=== PATIENT | male | born 1940 | race Caucasian/White ===

== ENCOUNTER 2016-12-05 07:35 | Day surgery (SDC) | payer MEDICARE, BC ==
[2016-12-05] MEDS ORDERED: Propofol 200 MG/20 ML SDV ONE ×2 (07:37→07:38)
[2016-12-05] MEDS ORDERED: fentaNYL 100 MCG/2 ML SDV ONE (07:37)
[2016-12-05] MEDS ORDERED: Dextrose 5%-Lactated Ringers 1,000 ML IV SCH (08:30)
[2016-12-05 11:08] VITALS: BP 136/84
--- NOTE | 2016-12-11 12:48 | OR ---
DATE OF PROCEDURE: 12/05/2016 PREOPERATIVE DIAGNOSIS: Indications for colon screening. POSTOPERATIVE DIAGNOSIS: Uncomplicated left colonic diverticulosis. OPERATIVE PROCEDURE: Flexible colonoscopy. ANESTHESIA: IV sedation. INDICATION FOR PROCEDURE: A 76-year-old male presenting for a screening colonoscopy. He has no personal or family history of colonic neoplasia. Plan is to proceed with colonoscopy with biopsies and/or polypectomy. Potential risks including bleeding and perforation were discussed, and the patient wishes to proceed. DETAILS OF PROCEDURE: The patient was taken to the operating room and placed in a left lateral decubitus position. IV sedation was administered, after which the initial digital rectal exam was performed and was unremarkable. Colonoscope was then passed to the level of the cecum. The prep was fairly good with there only being a small amount of liquid stool. However, the patient was noted to have some uncomplicated diverticulosis in the left colon. Apart from that, there were no abnormalities. There were no areas of colitis. No polyps or other signs of neoplasia. The scope was then withdrawn and the above findings reconfirmed, and then the procedure concluded. The patient was taken to the recovery room in a satisfactory condition. Recommendation would be to repeat the colonoscopy in 10 years based on clinical judgment. If the patient is in especially good health at that time, it would be reasonable to repeat it at that time. Otherwise, this would involve clinical judgement at that point. Jc Amin MD /[id number]
== END 2016-12-05 11:30 | disposition home or self-care (01) ==
LOC: JP.SDS 07:35
PROVIDERS: ATTEND Surgery
DX: Z12.11 Encounter for screening for malignant neoplasm of colon (principal); K57.30 Diverticulosis of large intestine without perforation or abscess without bleeding
CPT/HCPCS: G0121; J2704; J3010; J7042

== ENCOUNTER 2019-04-15 09:55 | Emergency (ER) | payer MEDICARE ==
[2019-04-15] MEDS ORDERED: Sodium Chloride 0.9% 10 ML Syringe FLUSH PRN (10:16)
--- NOTE | 2019-04-15 10:21 | EDM.PDOC ---
ED HPI GENERAL MEDICAL PROBLEM - General Chief Complaint: Neuro Symptoms/Deficits Stated Complaint: POSSIBLE STROKE? / SPEECH IMPAIRMENT Time Seen by Provider: 04/15/19 10:17 Source of Information: Reports: Patient History Limitations: Reports: No Limitations - History of Present Illness INITIAL COMMENTS - FREE TEXT/NARRATIVE: pt arrived with a history of increased didfficulty finding his words an getting them out. His states thar since last summer in the evening when he is tired he has problems getting his words out. He has a history of atrial fib and she thinks he is on xarelto. Onset: Other ( the symptoms are different in that he got up like this and it remains the same. ) Duration: Hour(s): Location: Reports: Head, Other ( difficulty getting his words out. ) Associated Symptoms: Reports: No Other Symptoms - Related Data Allergies Allergy/AdvReac Type Severity Reaction Status Date / Time No Known Allergies Allergy Verified 04/15/19 10:04 Home Meds: Home Meds Calcium Carbonate [Calcium] 500 mg PO DAILY 11/30/16 [History] Cholecalciferol (Vitamin D3) [Vitamin D] 5,000 unit PO DAILY 11/30/16 [History] Multivitamin with Minerals [One Daily Plus Minerals] 1 tab PO DAILY 11/30/16 [ History] Valsartan [Diovan] 40 mg PO DAILY 11/30/16 [History] guaiFENesin/Codeine Phosphate [Guaiatussin AC Liquid] 10 ml PO Q4H PRN 11/30/16 [History] Rivaroxaban [Xarelto] 20 mg PO DAILY 04/15/19 [History] Past Medical History HEENT History: Reports: Other (See Below) Other HEENT History: 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 Cardiovascular History: Reports: Hypertension Respiratory History: Reports: Pneumonia, Recurrent Gastrointestinal History: Reports: Colon Polyp, Hemorrhoids Musculoskeletal History: Reports: Other (See Below) Other Musculoskeletal History: right knee edema from pseudogout - Past Surgical History HEENT Surgical History: Reports: Adenoidectomy GI Surgical History: Reports: Colonoscopy Social & Family History - Caffeine Use Caffeine Use: Reports: Coffee ED ROS GENERAL - Review of Systems Review Of Systems: See Below Constitutional: Reports: No Symptoms HEENT: Reports: No Symptoms Respiratory: Reports: No Symptoms Cardiovascular: Reports: Palpitations, Other (pt has a history of atrial fib on xarelto.) GI/Abdominal: Reports: No Symptoms : Reports: No Symptoms Musculoskeletal: Reports: No Symptoms Neurological: Reports: Trouble Speaking Psychiatric: Reports: No Symptoms ED EXAM, NEURO - Physical Exam Exam: See Below Text/Narrative:: pt arrived this am because he was not able to express himself. He has had a history of some problems in that if he got tired he would have trouble finding the words he needed to find. He has not had a headache and he was not having trouble with his motor funtions. Exam Limited By: Other (pt was having trouble finding the right word to express himself.) General Appearance: Alert, No Apparent Distress, Other (pupils are equal and reactive. ) Ears: Normal TMs Nose: Normal Inspection Throat/Mouth: Normal Inspection Head Exam: Atraumatic Neck: Other (no notable bruits found) Respiratory/Chest: No Respiratory Distress Cardiovascular: Irregularly Irregular, Other (pt has a history of atrial fib. ) GI/Abdominal: Soft, Non-Tender (Male) Exam: Deferred Rectal (Males) Exam: Deferred Neurological: Alert, Oriented x 3, Other ( difficult time expressing himself. ) Back Exam: Normal Inspection Extremities: Normal Inspection Psychiatric: Normal Affect Course - Vital Signs Last Recorded V/S: Last Vital Signs Temp 36.3 C 04/15/19 10:32 Pulse 82 04/15/19 13:44 Resp 14 04/15/19 12:27 BP 150/104 H 04/15/19 13:44 Pulse Ox 99 04/15/19 13:44 - Orders/Labs/Meds Labs: Laboratory Tests 04/15/19 04/15/19 04/15/19 Range/Units 10:22 10:22 10:22 WBC 9.3 (4.5-11.0) K/uL RBC 4.43 (4.30-5.90) M/uL Hgb 14.4 (12.0-15.0) g/dL Hct 44.1 (40.0-54.0) % MCV 100 H (80-98) fL MCH 33 H (27-31) pg MCHC 33 (32-36) % Plt Count 230 (150-400) K/uL Neut % (Auto) 41 (36-66) % Lymph % (Auto) 44 (24-44) % Craven % (Auto) 10 H (2-6) % Eos % (Auto) 5 H (2-4) % Baso % (Auto) 0 (0-1) % Sodium 139 L (140-148) mmol/L Potassium 4.3 (3.6-5.2) mmol/L Chloride 103 (100-108) mmol/L Carbon Dioxide 28 (21-32) mmol/L Anion Gap 12.3 (5.0-14.0) mmol/L BUN 26 H (7-18) mg/dL Creatinine 1.1 (0.8-1.3) mg/dL Est Cr Clr Drug Dosing 53.55 mL/min Estimated GFR (MDRD) > 60 (>60) Glucose 73 L (74-106) mg/dL Calcium 9.4 (8.5-10.1) mg/dL Total Bilirubin 0.9 (0.2-1.0) mg/dL AST 24 (15-37) U/L ALT 35 (12-78) U/L Alkaline Phosphatase 131 H (46-116) U/L Troponin I < 0.017 (0.000-0.056) ng/mL Total Protein 8.5 H (6.4-8.2) g/dL Albumin 3.9 (3.4-5.0) g/dL Globulin 4.6 H (2.3-3.5) g/dL Albumin/Globulin Ratio 0.9 L (1.2-2.2) Urine Color (YELLOW) Urine Appearance (CLEAR) Urine pH (5.0-8.0) Ur Specific [place] (1.008-1.030) Urine Protein (NEGATIVE) mg/dL Urine Glucose (UA) (NEGATIVE) mg/dL Urine Ketones (NEGATIVE) mg/dL Urine Occult Blood (NEGATIVE) Urine Nitrite (NEGATIVE) Urine Bilirubin (NEGATIVE) Urine Urobilinogen (0.2-1.0) EU/dL Ur Leukocyte Esterase (NEGATIVE) Urine RBC (0-5) Urine WBC (0-5) Ur Epithelial Cells Amorphous Sediment Urine Bacteria Urine Mucus 04/15/19 Range/Units 10:48 WBC (4.5-11.0) K/uL RBC (4.30-5.90) M/uL Hgb (12.0-15.0) g/dL Hct (40.0-54.0) % MCV (80-98) fL MCH (27-31) pg MCHC (32-36) % Plt Count (150-400) K/uL Neut % (Auto) (36-66) % Lymph % (Auto) (24-44) % Craven % (Auto) (2-6) % Eos % (Auto) (2-4) % Baso % (Auto) (0-1) % Sodium (140-148) mmol/L Potassium (3.6-5.2) mmol/L Chloride (100-108) mmol/L Carbon Dioxide (21-32) mmol/L Anion Gap (5.0-14.0) mmol/L BUN (7-18) mg/dL Creatinine (0.8-1.3) mg/dL Est Cr Clr Drug Dosing mL/min Estimated GFR (MDRD) (>60) Glucose (74-106) mg/dL Calcium (8.5-10.1) mg/dL Total Bilirubin (0.2-1.0) mg/dL AST (15-37) U/L ALT (12-78) U/L Alkaline Phosphatase (46-116) U/L Troponin I (0.000-0.056) ng/mL Total Protein (6.4-8.2) g/dL Albumin (3.4-5.0) g/dL Globulin (2.3-3.5) g/dL Albumin/Globulin Ratio (1.2-2.2) Urine Color Yellow (YELLOW) Urine Appearance Slightly cloudy A (CLEAR) Urine pH 5.0 (5.0-8.0) Ur Specific [place] 1.020 (1.008-1.030) Urine Protein 30 H (NEGATIVE) mg/dL Urine Glucose (UA) Negative (NEGATIVE) mg/dL Urine Ketones Negative (NEGATIVE) mg/dL Urine Occult Blood Trace-intact H (NEGATIVE) Urine Nitrite Negative (NEGATIVE) Urine Bilirubin Negative (NEGATIVE) Urine Urobilinogen 0.2 (0.2-1.0) EU/dL Ur Leukocyte Esterase Negative (NEGATIVE) Urine RBC 5-10 H (0-5) Urine WBC 0-5 (0-5) Ur Epithelial Cells Moderate Amorphous Sediment Not seen Urine Bacteria Few Urine Mucus Few Meds: Medications Discontinued Medications Generic Name Dose Route Start Last Admin Trade Name Freq PRN Reason Stop Dose Admin Sodium Chloride 1,000 mls @ 150 mls/hr 04/15/19 11:00 04/15/19 10:56 Normal Saline IV 150 mls/hr ASDIRECTED CALLUM Administration Sodium Chloride 10 ml 04/15/19 10:16 04/15/19 10:44 Saline Flush FLUSH 10 ml ASDIRECTED PRN Administration Keep Vein Open - Re-Assessments/Exams Free Text/Narrative Re-Assessment/Exam: 04/15/19 14:32 pt had a cat scan of the head which was neg. He had a mri of the brain and a mra. These all looked good. His lab work was normal. He will be followed at the clinic. If he continues to have problems he may need to see neurology. Departure - Departure Time of Disposition: 14:25 Disposition: Home, Self-Care 01 Condition: Fair Clinical Impression: Problems with communication (including speech), Atrial fibrillation with controlled ventricular rate - Discharge Information Instructions: Aphasia, Atrial Fibrillation, [id number] Referrals: PCP,None [Primary Care Provider] - Forms: ED Department Discharge Care Plan Goals: continue same meds, push fluids, appt with John Littlejohn in 1 week in follow up, rtc if symptoms should get worse. Sepsis Event Note - Focused Exam Date Exam was Performed: 04/20/19 Time Exam was Performed: 00:33
--- NOTE | 2019-04-15 10:48 | CRLCT ---
indication: Problem with speech; rule out stroke. COMPARISON: None. TECHNIQUE: CT head without intravenous contrast; coronal reformats. FINDINGS: No evidence of intracranial hemorrhage. Evidence of small vessel disease with periventricular low densities. No evidence of shift of the midline structures. The calvarium is unremarkable. IMPRESSION: 1. Evidence of small vessel disease. 2. No intracranial hemorrhage. 3. No mass lesions or shift of the midline structures. Please note that all CT scans at this facility use dose modulation, iterative reconstruction, and/or weight-based dosing when appropriate to reduce radiation dose to as low as reasonably achievable. Dictated by Ellen Urbina MD @ Apr 15 2019 10:43AM Signed by Dr. Ellen Urbina @ Apr 15 2019 10:46AM
[2019-04-15] MEDS ORDERED: Sodium Chloride 0.9% 1,000 ML IV SCH (11:00)
[2019-04-15 13:51] VITALS: BP 150/104; PULSE 82
--- NOTE | 2019-04-15 13:54 | CRLMR ---
INDICATION: Aphasia. TECHNIQUE: MRI brain: Multiplanar multisequence noncontrast MR images were obtained through the brain. MRA head: 3D lped-nt-tmebax images were obtained through the head. COMPARISON: CT brain 04/15/2019. FINDINGS: MRI brain: Prominence of the ventricles and sulci compatible with mild diffuse cerebral volume loss. No mass effect or midline shift. Patchy and scattered T2 FLAIR hyperintensities in the supratentorial white matter, typical for sequelae of [id number] chronic microvascular ischemic changes. No intracranial hemorrhage. No diffusion restriction to suggest acute infarction. The major arterial flow voids of the skullbase are preserved. Right phthisis bulbi. Mild paranasal sinus mucosal thickening. Trace mastoid fluid. MRA head: The visualized internal carotid, middle cerebral, and anterior cerebral arteries are patent without significant narrowing. The vertebral, basilar, and posterior cerebral arteries are patent without significant narrowing. No intracranial aneurysm. IMPRESSION: 1. No acute infarction, mass effect, or intracranial hemorrhage. 2. No significant narrowing of the visualized intracranial arteries. 3. Gnvw-in-klagycqt chronic microvascular ischemic changes. 4. Mild diffuse cerebral volume loss. Dictated by Tony Guerra MD @ Apr 15 2019 1:47PM Signed by Dr. Tony Guerra @ Apr 15 2019 1:53PM
--- NOTE | 2019-04-15 13:54 | CRLMR ---
INDICATION: Aphasia. TECHNIQUE: MRI brain: Multiplanar multisequence noncontrast MR images were obtained through the brain. MRA head: 3D dtcf-[id number]-ctkaqh images were obtained through the head. COMPARISON: CT brain 04/15/2019. FINDINGS: MRI brain: Prominence of the ventricles and sulci compatible with mild diffuse cerebral volume loss. No mass effect or midline shift. Patchy and scattered T2 FLAIR hyperintensities in the supratentorial white matter, typical for sequelae of [id number] chronic microvascular ischemic changes. No intracranial hemorrhage. No diffusion restriction to suggest acute infarction. The major arterial flow voids of the skullbase are preserved. Right phthisis bulbi. Mild paranasal sinus mucosal thickening. Trace mastoid fluid. MRA head: The visualized internal carotid, middle cerebral, and anterior cerebral arteries are patent without significant narrowing. The vertebral, basilar, and posterior cerebral arteries are patent without significant narrowing. No intracranial aneurysm. IMPRESSION: 1. No acute infarction, mass effect, or intracranial hemorrhage. 2. No significant narrowing of the visualized intracranial arteries. 3. Ovjj-or-hhdmjhhl chronic microvascular ischemic changes. 4. Mild diffuse cerebral volume loss. Dictated by Tony Guerra MD @ Apr 15 2019 1:47PM Signed by Dr. Tony Guerra @ Apr 15 2019 1:53PM
== END 2019-04-15 14:39 | disposition home or self-care (01) ==
LOC: JP.ED 09:55
DX: I48.91 Unspecified atrial fibrillation (principal); I10 Essential (primary) hypertension; Z79.899 Other long term (current) drug therapy
CPT/HCPCS: 36415; 70450; 70544; 70551; 80053; 81001; 84484; 85025; 93005; 93010; 96360; 96361; 99285; J7030

== ENCOUNTER 2021-11-20 03:46 | Emergency (ER) | payer MEDICARE ==
[2021-11-20] MEDS ORDERED: REMDESIVIR 200 MG in Sodium Chloride 0.9% 250 ML IV ONE (04:25)
[2021-11-20] MEDS ORDERED: Acetaminophen 325 MG Tab PO PRN (04:28)
[2021-11-20] MEDS ORDERED: Lactated Ringers 1,000 ML IV SCH (04:30)
[2021-11-20 04:51] LABS: ESTIMATED GFR 50 mL/min (>60)
[2021-11-20 07:18] VITALS: BP 126/76; PULSE 71
== END 2021-11-20 07:10 | disposition home or self-care (01) ==
LOC: JP.ED 03:46
DX: U07.1 COVID-19 (principal); I10 Essential (primary) hypertension; Z79.899 Other long term (current) drug therapy; Z86.16 Personal history of COVID-19
CPT/HCPCS: 36415; 71045; 80053; 83605; 84145; 85025; 86140; 96365; 99285; J0248; J7050; J7120

== ENCOUNTER 2021-11-20 21:22 | Inpatient (IN) | payer MEDICARE ==
[2021-11-20] MEDS ORDERED: Acetaminophen 325 MG Tab PO PRN (21:32)
[2021-11-20] MEDS ORDERED: Ketorolac 30 MG/ML SDV IVPUSH ONE (21:41)
[2021-11-20] MEDS ORDERED: Dexamethasone 4 MG/ML SDV IVPUSH SCH (21:45)
[2021-11-20 22:27] LABS: TROPONIN I HIGH SENSITIVITY 49.9 pg/mL (<=60.3)
[2021-11-20] MEDS ORDERED: Furosemide 40 MG/4 ML VIAL IVPUSH ONE (22:37)
[2021-11-21] MEDS ORDERED: Furosemide 40 MG/4 ML VIAL IVPUSH ONE (04:49)
[2021-11-21] MEDS ORDERED: Cholecalciferol (Vitamin D3) 25 MCG Tab PO SCH (09:00)
[2021-11-21] MEDS ORDERED: Calcium Carbonate 500 MG Tab.Chew PO SCH (09:00)
[2021-11-21] MEDS ORDERED: REMDESIVIR 100 MG in Sodium Chloride 0.9% 100 ML IV SCH ×4 (09:00)
[2021-11-21] MEDS ORDERED: Metoprolol Succinate 25 MG Tab.ER PO SCH (09:00)
[2021-11-21] MEDS ORDERED: Losartan 25 MG Tab PO SCH (09:00)
[2021-11-21] MEDS ORDERED: Rivaroxaban 10 MG Tab PO SCH (09:00)
[2021-11-21] MEDS ORDERED: Multivitamins with Iron/Calcium/Folic Acid/Minerals Tab PO SCH (09:00)
[2021-11-21] MEDS ORDERED: guaiFENesin/Dextromethorphan 100-10 MG/5 ML Soln 10 ML Cup PO PRN (11:38)
[2021-11-21] MEDS ORDERED: Benzonatate 100 MG Cap PO PRN (11:38)
[2021-11-21] MEDS ORDERED: Dexamethasone 4 MG/ML SDV IVPUSH SCH (14:00)
[2021-11-22 05:36] LABS: ESTIMATED GFR 43 mL/min (>60)
[2021-11-22 07:29] VITALS: BP 109/75; PULSE 108
== END 2021-11-22 17:05 | disposition expired | DRG 177 ==
LOC: JP.ED 21:22 → JP.MS 23:21
PROVIDERS: ADMIT Family Medicine; ATTEND Internal Medicine
PROC: 8E0ZXY6 Isolation (ICD-10-PCS; principal; 2021-11-20)
PROC: 3E0333Z Introduction of Anti-inflammatory into Peripheral Vein, Percutaneous Approach (ICD-10-PCS; 2021-11-20)
PROC: 5A0945A Assistance with Respiratory Ventilation, 24-96 Consecutive Hours, High Flow/Velocity Cannula (ICD-10-PCS; 2021-11-20)
PROC: XW033E5 Introduction of Remdesivir Anti-infective into Peripheral Vein, Percutaneous Approach, New Technology Group 5 (ICD-10-PCS; 2021-11-21)
DX: U07.1 COVID-19 (principal); I48.91 Unspecified atrial fibrillation; J12.82 Pneumonia due to coronavirus disease 2019; J96.01 Acute respiratory failure with hypoxia; I48.20 Chronic atrial fibrillation, unspecified; Z66 Do not resuscitate; G31.84 Mild cognitive impairment of uncertain or unknown etiology; H91.90 Unspecified hearing loss, unspecified ear; I10 Essential (primary) hypertension; K64.9 Unspecified hemorrhoids; K63.5 Polyp of colon; H54.61 Unqualified visual loss, right eye, normal vision left eye; M67.813 Other specified disorders of tendon, right shoulder; M67.814 Other specified disorders of tendon, left shoulder; Z98.890 Other specified postprocedural states; Z79.01 Long term (current) use of anticoagulants; Z79.899 Other long term (current) drug therapy; Z87.01 Personal history of pneumonia (recurrent); Z86.73 Personal history of transient ischemic attack (TIA), and cerebral infarction without residual deficits; Z90.89 Acquired absence of other organs
CPT/HCPCS: 36415; 36600; 71045; 80048; 80076; 82803; 83605; 83615; 83880; 84145; 84484; 85025; 85379; 85610; 86140; 87040; J1100; J1885; J1940; U0002; 80053; 96374; 96375; 99285-25; A9270-GY; J3490